=== PATIENT | male | born 1955 | race Hispanic/Latino ===

== ENCOUNTER 2019-11-25 18:28 | Emergency (ER) | payer OTHER ==
[~2019-11-25] VITALS: Ht 162.6 cm; Wt 74.4 kg
[2019-11-25] MEDS ORDERED: TRAMADOL HCL 50 MG TAB PO ONE (19:30)
--- NOTE | 2019-11-25 19:37 | Emergency Department Note ---
History of Present Illnes History of Present Illness Chief Complaint: General Medicine Complaints History of Present Illness This is a 64 year old male presents with c/o pain to bilateral upper legs since this morning, states pain to front of his upper legs, states pain worse with movement and states it feels like cramping. Historian: Patient Arrival Mode: Car Onset (how long ago): hour(s) (9) Location: bilateral upper legs Quality: pain, cramping sensation Radiation: Reports non-radiation Severity: moderate Onset quality: gradual Duration (how long): hour(s) (9) Timing of current episode: constant Progression: unchanged Chronicity: new Context: Denies recent illness, Denies recent surgery, Denies trauma/injury Relieving factors: none Exacerbating factors: movement Associated symptoms: Reports denies other symptoms Treatments prior to arrival: none Past Medical/Family History Physician Review I have reviewed the patient's past medical and family history. Any updates have been documented here. Past Medical History Recent Fever: No Clinical Suspicion of Infectio: No New/Unexplained Change in Ment: No Past Medical History: Hypertension, [place], CAD, Hyperlipedemia Other Medical History: BPH NEUROPATHY Past Surgical History: CABG Other Surgery: CARDIAC STENTS CABG 2019 Social History Smoking Cessation: Never Smoker Alcohol Use: Occasional Any Illegal Drug Use: No Physically hurt or threatened: No Family History Family history of heart diseas: Yes Other family history htn, cad Other Any Pre-Existing Lines (PICC,: No Review of Systems Review of Systems Constitutional: Reports no symptoms EENTM: Reports no symptoms Cardiovascular: Reports no symptoms Respiratory: Reports no symptoms Gastrointestinal: Reports no symptoms Genitourinary: Reports no symptoms Musculoskeletal: Reports as per HPI Integumentary: Reports no symptoms Neurological: Reports no symptoms Psychological: Reports no symptoms Endocrine: Reports no symptoms Hematological/Lymphatic: Reports no symptoms Physical Exam Related Data Allergies: Coded Allergies: No Known Allergies (Unverified , 11/25/19) Triage Vital Signs Vital Signs Date Time Temp Pulse Resp B/P (MAP) Pulse Ox O2 Delivery O2 Flow Rate FiO2 11/25/19 18:54 98.2 81 18 190/91 100 Room Air Vital signs reviewed: Yes Physical Exam CONSTITUTIONAL Constitutional: Present well-developed, Present well-nourished; Absent distressed HENT HENT: Present normocephalic, Present atraumatic, Present oropharynx clear/moist, Present nose normal HENT L/R: Present left ext ear normal, Present right ext ear normal EYES Eyes: Reports PERRL, Reports conjunctivae normal NECK Neck: Present ROM normal PULMONARY Pulmonary: Present effort normal, Present breath sounds normal CARDIOVASCULAR Cardiovascular: Present regular rhythm, Present heart sounds normal, Present capillary refill normal, Present normal rate GASTROINTESTINAL Abdominal: Present soft, Present nontender, Present bowel sounds normal GENITOURINARY Genitourinary: Present exam deferred SKIN Skin: Present warm, Present dry MUSCULOSKELETAL Musculoskeletal: Present ROM normal, Present tenderness (mild to bilateral anterior thighs, ); Absent edema, Absent deformity, Absent swelling NEUROLOGICAL Neurological: Present alert, Present oriented x 3, Present no gross motor or sensory deficits PSYCHOLOGICAL Psychological: Present mood/affect normal, Present judgement normal Results Laboratory Laboratory Laboratory Tests Test 11/25/19 19:02 White Blood Count 4.34 x10e3/uL (4.8-10.8) Red Blood Count 5.23 x10e6/uL (4.3-5.7) Hemoglobin 13.4 g/dL (14.0-18.0) Hematocrit 43.0 % (38.2-49.6) Mean Corpuscular Volume 82.2 fL (81-99) Mean Corpuscular Hemoglobin 25.6 pg (28-32) Mean Corpuscular Hemoglobin Concent 31.2 g/dL (31-35) Red Cell Distribution Width 15.8 % (11.7-14.4) Platelet Count 210 x10e3/uL (140-360) Neutrophils (%) (Auto) 56.0 % (38.7-80.0) Lymphocytes (%) (Auto) 25.1 % (18.0-39.1) Monocytes (%) (Auto) 17.5 % (4.4-11.3) Eosinophils (%) (Auto) 0.5 % (0.0-6.0) Basophils (%) (Auto) 0.7 % (0.0-1.0) Neutrophils # (Auto) 2.4 (2.1-6.9) Lymphocytes # (Auto) 1.1 (1.0-3.2) Monocytes # (Auto) 0.8 (0.2-0.8) Eosinophils # (Auto) 0.0 (0.0-0.4) Basophils # (Auto) 0.0 (0.0-0.1) Absolute Immature Granulocyte (auto 0.01 x10e3/uL (0-0.1) Sodium Level 140 mmol/L (136-145) Potassium Level 3.6 mmol/L (3.5-5.1) Chloride Level 109 mmol/L (98-107) Carbon Dioxide Level 20 mmol/L (22-29) Anion Gap 14.6 mmol/L (8-16) Blood Urea Nitrogen 16 mg/dL (7-26) Creatinine 1.40 mg/dL (0.72-1.25) Estimat Glomerular Filtration Rate 51 ML/MIN (60-) BUN/Creatinine Ratio 11 (6-25) Glucose Level 135 mg/dL (74-118) Calcium Level 8.5 mg/dL (8.4-10.2) Magnesium Level 2.1 MG/DL (1.3-2.1) Total Bilirubin 0.4 mg/dL (0.2-1.2) Aspartate Amino Transf (AST/SGOT) 29 IU/L (5-34) Alanine Aminotransferase (ALT/SGPT) 13 IU/L (0-55) Alkaline Phosphatase 97 IU/L (40-150) Creatine Kinase 72 IU/L (30-200) Creatine Kinase MB 0.50 ng/mL (0-5.0) Troponin I 0.014 ng/mL (0-0.300) Total Protein 7.0 g/dL (6.5-8.1) Albumin 3.8 g/dL (3.5-5.0) Globulin 3.2 g/dL (2.3-3.5) Albumin/Globulin Ratio 1.2 (0.8-2.0) Lab results reviewed: Yes Assessment & Plan Medical Decision Making [facility] pt with c/o bilateral anterior thigh pain cbc, cmp, ck,ckmb ordered to eval for leukocytosis, electrolyte abnormality, dehydration, rhabdomyolysis tramadol 50 mg po ordered pt discharged with tramadol 50 mg 1 po q 6 hours prn pain #20 Reassessment Reassessment time: 20:33 Reassessment pt no longer with pain to legs after tramadol 50 mg po Assessment & Plan Final Impression: (1) Bilateral lower extremity pain Depart Disposition: HOME, SELF-CARE Last Vital Signs Date Time Temp Pulse Resp B/P (MAP) Pulse Ox O2 Delivery O2 Flow Rate FiO2 8/17/20 18:54 98.2 81 18 190/91 100 Room Air Medications in the ED Tramadol HCl 50 mg ONCE ONCE PO ; Start 11/25/19 at 19:30; Stop 11/25/19 at 19:31; Status UNV ADRIENNE MCRAE MD Nov 25, 2019 19:37
[2019-11-25 19:46] LABS: BASOPHILS % 0.7 % (0.0-1.0); EOSINOPHILS % 0.5 % (0.0-6.0); HEMOGLOBIN 13.4 g/dL (14.0-18.0); LYMPHOCYTES # (AUTO) 1.1 (1.0-3.2); LYMPHOCYTES % 25.1 % (18.0-39.1); MEAN CORPUSCULAR HEMOGLOBIN 25.6 pg (28-32); MEAN CORPUSCULAR HGB CONC 31.2 g/dL (31-35); MEAN CORPUSCULAR VOLUME 82.2 fL (81-99); MONOCYTES # (AUTO) 0.8 (0.2-0.8); MONOCYTES % 17.5 % (4.4-11.3); NEUTROPHILS # (AUTO) 2.4 (2.1-6.9); PLATELET COUNT 210 x10e3/uL (140-360); RED BLOOD COUNT 5.23 x10e6/uL (4.3-5.7); RED CELL DISTRIBUTION WIDTH 15.8 % (11.7-14.4)
[2019-11-25 20:06] LABS: ALBUMIN 3.8 g/dL (3.5-5.0); ALBUMIN/GLOBULIN RATIO 1.2 (0.8-2.0); ANION GAP 14.6 mmol/L (8-16); CALCIUM 8.5 mg/dL (8.4-10.2); CREATININE, SERUM 1.4 mg/dL (0.72-1.25); POTASSIUM 3.6 mmol/L (3.5-5.1)
[2019-11-25 20:15] LABS: CREATINE KINASE MB 0.5 ng/mL (0-5.0)
[2019-11-25 20:41] VITALS: BP 137/80
--- OUTSIDE RECORDS SUMMARY | 2019-11-25 20:51 | XMS REPORT | Continuity of Care Document ---
Author Author [employer] Address Unknown Phone Unavailable Care Team Providers Care Associate Justice Name Role Phone [email or web address] Unavailable Un available Problems Problem Status Onset Date Classification Date Reported Comments Source CHEST PAIN Active 03/10/2015 [facility] CHRONIC DIASTOLIC (CONGESTIVE) HEART YESSENIA Active [facility] CHRONIC SYSTOLIC (CONGESTIVE) HEART FAIL Active [facility] Medications No Data Provided for This Section Allergies, Adverse Reactions, Alerts No Known Medication Allergies Immunizations No Data Provided for This Section Results No Data Provided for This Section Pathology Reports No Data Provided for This Section Diagnostic Reports No Data Provided for This Section Consultation Notes No Data Provided for This Section Discharge Summaries No Data Provided for This Section History and Physicals No Data Provided for This Section Vital Signs Vital Sign Value Date Comments Source BMI Calculated 27.51 03/24/2015 [facility] Height 165.1 cm 03/24/2015 [facility] Weight 75 1 05/25/2014 [facility] Encounters Location Location Details Encounter Type Encounter Number Reason For Visit Attending Provider ADM Date DC Date Status Source [facility] Outpatient [id number] Vitaliy Diaz 03/24/2015 03/25/2015 [facility] Procedures No Data Provided for This Section Assessment and Plan No Data Provided for This Section Plan of Care No Data Provided for This Section Social History Social History Date Source No data available for this section 03/25/2015 [facility] Family History No Data Provided for This Section Advance Directives No Data Provided for This Section Functional Status No Data Provided for This Section
--- OUTSIDE RECORDS SUMMARY | 2019-11-25 20:52 | XMS REPORT | Summary of Care ---
Author Author [facility] Organization [facility] Address Unknown Phone Unavailable Encounter [facility] Mer[facility](AL[place]) [id number] Date(s): 03/24/15 - 03/24/15 [facility] [address] Discharge Disposition: Home Attending Physician: Vitaliy Diaz MD Admitting Physician: Vitaliy Diaz MD Referring Physician: Carla Nguyen MD Vital Signs Most recent to 1 oldest [Reference Range]: Height 165.1 cm (03/24/15 10:35 AM) Weight 75 kg (03/24/15 10:35 AM) Body Mass Index 27.51 m2 (03/24/15 10:35 AM) Problem List No data available for this section Allergies, Adverse Reactions, Alerts Substance Reaction Severity Status NKDA Active Medications No data available for this section Results No data available for this section Immunizations No data available for this section Procedures No data available for this section Social History No data available for this section Assessment and Plan No data available for this section
== END 2019-11-25 20:52 | disposition home or self-care (01) ==
LOC: ER 19:22
DX: M79.605 Pain in left leg (principal); M79.604 Pain in right leg; Z95.1 Presence of aortocoronary bypass graft; Z95.5 Presence of coronary angioplasty implant and graft; Z82.49 Family history of ischemic heart disease and other diseases of the circulatory system
CPT/HCPCS: 36415; 80053; 82550; 82553; 83735; 84484; 85025; 99283

== ENCOUNTER 2019-12-19 11:30 | Emergency (ER) | payer OTHER, MEDICARE ==
[~2019-12-19] VITALS: Ht 162.6 cm; Wt 74.4 kg
--- OUTSIDE RECORDS SUMMARY | 2019-12-19 11:53 | XMS REPORT | Continuity of Care Document ---
Author Author [employer] Address Unknown Phone Unavailable Care Team Providers Care Rn Clinical Appeals Name Role Phone [employer] Information [employer] Unavailable Un available Problems Problem Status Onset Date Classification Date Reported Comments Source CHEST PAIN Active 03/10/2015 [facility] CHRONIC DIASTOLIC (CONGESTIVE) HEART YESSENIA Active [facility] CHRONIC SYSTOLIC (CONGESTIVE) HEART FAIL Active [facility] Medications No Data Provided for This Section [...] Date Comments Source BMI Calculated 27.51 03/24/2015 [facility] Height 165.1 cm 03/24/2015 [facility] Weight 75 1 05/25/2014 [facility] Encounters Location Location Details Encounter Type Encounter Number Reason For Visit Attending Provider ADM Date DC Date Status Source [facility] Outpatient [id number] Vitaliy Diaz 03/24/2015 03/25/2015 [facility] Procedures No Data Provided for This Section Assessment and Plan No Data Provided for This Section Plan of Care No Data Provided for This Section Social History Social History Date Source No data available for this section 03/25/2015 [facility] Family History No Data Provided for This Section Advance Directives No Data Provided for This Section Functional Status No Data Provided for This Section
--- NOTE | 2019-12-19 14:08 | Emergency Department Note ---
History of Present Illnes History of Present Illness Chief Complaint: Headache History of Present Illness This is a 64 year old male arrived to the ED with continued complaints of a frontal head ache for several days despite being on mediations. Chief Complaint Comment X 4 DAYS FRONTAL HEADACHE. SEEN BY HIS PRIMARY DOCTOR AND HE WAS DX WITH SINUSITIS AND GIVIN LEVOFLOXAIN 500 MG PO AND TKING TYLENOL 500 MG PO DAILY. 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 Any updates have been documented here. Past Medical History Recent Fever: No Clinical Suspicion of Infectio: No New/Unexplained Change in Ment: No Past Medical History: Hypertension, [place], CAD, Hyperlipedemia Other Medical History: BPH NEUROPATHY Past Surgical History: CABG Other Surgery: CARDIAC STENTS CABG 2019 Review of Systems Review of Systems Constitutional: Reports no symptoms EENTM: Reports no symptoms Cardiovascular: Reports no symptoms Respiratory: Reports no symptoms Gastrointestinal: Reports no symptoms Genitourinary: Reports no symptoms Musculoskeletal: Reports no symptoms Integumentary: Reports no symptoms Neurological: Reports as per HPI, Reports headache Psychological: Reports no symptoms Endocrine: Reports no symptoms Hematological/Lymphatic: Reports no symptoms Physical Exam Related Data Allergies: Coded Allergies: No Known Allergies (Unverified , 12/19/19) Triage Vital Signs Vital Signs Date Time Temp Pulse Resp B/P (MAP) Pulse Ox O2 Delivery O2 Flow Rate FiO2 12/19/19 12:07 97.9 74 18 155/85 100 Vital signs reviewed: Yes Physical Exam CONSTITUTIONAL Constitutional: Present well-developed, Present well-nourished HENT HENT: Present normocephalic, Present atraumatic, Present oropharynx clear/moist, Present nose normal HENT L/R: Present left ext ear normal, Present right ext ear normal EYES Eyes: Reports PERRL, Reports conjunctivae normal NECK Neck: Present ROM normal PULMONARY Pulmonary: Present effort normal, Present breath sounds normal CARDIOVASCULAR Cardiovascular: Present regular rhythm, Present heart sounds normal, Present capillary refill normal, Present normal rate GASTROINTESTINAL Abdominal: Present soft, Present nontender, Present bowel sounds normal GENITOURINARY Genitourinary: Present exam deferred SKIN Skin: Present warm, Present dry MUSCULOSKELETAL Musculoskeletal: Present ROM normal NEUROLOGICAL Neurological: Present alert, Present oriented x 3, Present no gross motor or se nsory deficits PSYCHOLOGICAL Psychological: Present mood/affect normal, Present judgement normal Results Laboratory Lab results reviewed: Yes Imaging Imaging results reviewed: Yes Impressions IMPRESSION: Head CT: 1. Small foci of acute subarachnoid hemorrhage in the bilateral frontoparietal sulci without definite evidence of trauma. No basilar cisterns or sylvian fissures SAH. Correlate with possible prior trauma, anticoagulation, coagulopathy, or perhaps vasculitis. 2. Chronic right occipito-temporal infarct. 3. Mild chronic microvascular ischemic changes. Face CT: 1. Complete opacification of the right maxillary sinus. 2. Mild mucosal inflammatory thickening of the frontal and ethmoidal sinuses. 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 Patient placed on multiple antibiotics with resumption of acute sinusitis. CT scan in the emergency department revealed subarachnoid hemorrhage. Patient neurovascular intact, blood pressure controlled, required transfer to [facility] to the neurosurgery service for higher level of care. Patient stable at time of transfer. Assessment & Plan Final Impression: (1) Subarachnoid hemorrhage Depart Disposition: TRANS TO OTHER [facility] Last Vital Signs Date Time Temp Pulse Resp B/P (MAP) Pulse Ox O2 Delivery O2 Flow Rate FiO2 12/19/19 12:07 97.9 74 18 155/85 100 DAJA TREVINO DO Dec 19, 2019 14:08
--- NOTE | 2019-12-19 14:31 | NUR ---
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
--- NOTE | 2019-12-19 14:36 | Diagnostic Imaging Report ---
EXAMINATION: Head and face CT without contrast. HISTORY: 64-year-old male with forehead pain, sinus pressure, evaluate for sinusitis. COMPARISON: None. TECHNIQUE: Multidetector axial images were obtained without contrast from the foramen magnum to the vertex and over the face. Dose modulation, iterative reconstruction, and/or weight based adjustment of the mA/kV was utilized to reduce the radiation dose to as low as reasonably achievable. Head CT findings: Skull: No lytic or blastic lesions. No fractures. Extra-axial spaces: Small focal area of hyperdensity in the bilateral frontoparietal sulci, likely represent acute subarachnoid hemorrhage, likely traumatic in the appropriate clinical setting. The basilar cisterns and sylvian fissures are clear without hemorrhage. Parenchyma: -Cortical and subcortical encephalomalacia in the right posterior-inferior temporal and posterior medial occipital/lingual Gregorio encephalomalacia, with mild compensatory dilatation of the right atrium, likely the sequela from prior infarction along the right BEHAVIORAL THERAPY COORDINATOR distribution. Additional focal area of cortical subcortical encephalomalacia in the right medial parietal lobe/preclude use, again likely sequela from remote infarction. -Few scattered pulmonary hypodensities, most likely nonspecific chronic microvascular ischemic changes. -No mass, parenchymal hemorrhage or CT evidence of acute vascular insult. Brain volume: Normal for age. Ventricles: No hydrocephalus or displacement. Arteries: No density suggestive of thrombus. Dural sinuses: No abnormal density. Extra-axial spaces: No abnormal density. Foramen magnum: No mass, Chiari malformation, or basilar invagination. Sella: No obvious mass. Paranasal/mastoid sinuses: Imaged portions unremarkable. Face CT findings: Bones: Unremarkable. Facial soft tissues: Unremarkable. Orbits contents: Unremarkable. Paranasal sinuses and drainage pathways: Complete opacification of the right maxillary sinus and mucosal inflammatory thickening of the left maxillary sinus. Mild mucosal inflammatory thickening of the left frontal and bilateral ethmoidal air cells. The sphenoid sinuses are clear.. Nasal septum and nasal cavities: Deviated to the last with small bone spur. Anatomic variations: No significant anatomic variations. Teeth: Periapical lucency about the root of tooth #8 and scattered dental cavities. IMPRESSION: Head CT: 1. Small foci of acute subarachnoid hemorrhage in the bilateral frontoparietal sulci without definite evidence of trauma. No basilar cisterns or sylvian fissures SAH. Correlate with possible prior trauma, anticoagulation, coagulopathy, or perhaps vasculitis. 2. Chronic right occipito-temporal infarct. 3. Mild chronic microvascular ischemic changes. Face CT: 1. Complete opacification of the right maxillary sinus. 2. Mild mucosal inflammatory thickening of the frontal and ethmoidal sinuses. Findings were discussed with the ER physician Dr. Loyd on 12/19/2019 at 2:20 PM Signed by: Dr. Ramila Sampson M.D. on 12/19/2019 2:33 PM
[2019-12-19 14:51] LABS: BASOPHILS % 0.3 % (0.0-1.0); EOSINOPHILS % 0.3 % (0.0-6.0); HEMATOCRIT 42.7 % (38.2-49.6); HEMOGLOBIN 13.5 g/dL (14.0-18.0); LYMPHOCYTES # (AUTO) 1.2 (1.0-3.2); LYMPHOCYTES % 11.3 % (18.0-39.1); MEAN CORPUSCULAR HEMOGLOBIN 25.6 pg (28-32); MEAN CORPUSCULAR HGB CONC 31.6 g/dL (31-35); MEAN CORPUSCULAR VOLUME 80.9 fL (81-99); MONOCYTES % 9.4 % (4.4-11.3); NEUTROPHILS # (AUTO) 8.4 (2.1-6.9); NEUTROPHILS % 78.3 % (38.7-80.0); PLATELET COUNT 290 x10e3/uL (140-360); RED BLOOD COUNT 5.28 x10e6/uL (4.3-5.7); RED CELL DISTRIBUTION WIDTH 15.8 % (11.7-14.4)
[2019-12-19 14:57] LABS: INR 2.29; PROTHROMBIN TIME 26.3 seconds (11.9-14.5)
[2019-12-19 15:05] LABS: ALBUMIN 4.3 g/dL (3.5-5.0); ALBUMIN/GLOBULIN RATIO 1.4 (0.8-2.0); ANION GAP 15.8 mmol/L (8-16); CALCIUM 8.7 mg/dL (8.4-10.2); CREATININE, SERUM 1.22 mg/dL (0.72-1.25); POTASSIUM 3.8 mmol/L (3.5-5.1)
--- NOTE | 2019-12-19 15:59 | NUR ---
Called [facility] to check on the status of the transfer. Spoke with JRonak at the transfer center, stated only waiting on bed assignment, asked for ETA states unable to provide at the present time. states will call back once a bed is assigned. Dr. Loyd and SHARMIN Abebe notified.
--- NOTE | 2019-12-19 16:20 | NUR ---
received call from humanities coordinator Eloise Cordero: admin approval @ [id number] by Eloise Cordero precipitator operatorhumanities coordinator to [facility] [address] [place] [address] room [id number] accepting MD: Dr. Veronique Palumbo @ [id number] report to FAX TO
--- NOTE | 2019-12-19 16:41 | NUR ---
ANAT WILDER CALLED. 30 MIN ETA
== END 2019-12-19 17:26 | disposition other institution (70) ==
LOC: ER 11:51
DX: I60.9 Nontraumatic subarachnoid hemorrhage, unspecified (principal); I10 Essential (primary) hypertension; E78.5 Hyperlipidemia, unspecified; I25.10 Atherosclerotic heart disease of native coronary artery without angina pectoris; I25.2 Old myocardial infarction; Z95.1 Presence of aortocoronary bypass graft; Z95.5 Presence of coronary angioplasty implant and graft
CPT/HCPCS: 36415; 70450; 70486; 80053; 85025; 85610; 99284